=== PATIENT | female | born 1980 | race Caucasian/White ===

== ENCOUNTER 2018-03-12 17:02 | Outpatient (REF) | payer MEDICAID, SELFPAY ==
[2018-03-12 22:37] LABS: Anion Gap 10.5 mmol/L (3-11); BUN 11 mg/dL (7-18); CO2 26.5 mmol/L (21.0-32.0); CREATININE 0.74 mg/dL (0.55-1.02); Calcium 8.9 mg/dL (8.5-10.1); Chloride 103 mmol/L (98-107); Cholesterol 211 mg/dL (50-200); Glucose 86 mg/dL (70-100); HDL Cholesterol 89 mg/dL (40-60); LDL CHOLESTEROL 97 mg/dL (<100); Potassium 3.7 mmol/L (3.5-5.1); Sodium 140 mmol/L (136-145); Triglyceride 112 mg/dL (30-150)
== END 2018-03-12 17:22 ==
LOC: NCHCN 17:02
PROVIDERS: PCP Registered Nurse; Visit Provider Registered Nurse
DX: R00.2 Palpitations (principal); Z00.00 Encounter for general adult medical examination without abnormal findings
CPT/HCPCS: 80048; 80061; 83721; 84443